=== PATIENT | male | born 1955 | race Two or more races ===

== ENCOUNTER → 2024-02-04 | Outpatient (CLI) | payer OTHER, SELFPAY ==
[2024-02-04 09:17] LABS: Basophils # (Auto) 0.1 Thou/mm3 (0.0-0.2); Basophils % (Auto) 1 % (0-2.5); Eosinophils # (Auto) 0.3 Thou/mm3 (0.0-0.5); Eosinophils % (Auto) 5 % (0-10); Hematocrit 44.5 % (41.0-53.0); Hemoglobin 15.7 g/dL (13.5-16.0); Immature Granulocytes % (Auto) 0 % (0-0); Immature Granulocytes Auto 0.02 Thou/mm3 (0.00-0.00); Lymphocytes # (Auto) 1.4 Thou/mm3 (1.0-4.8); Lymphocytes % (Auto) 26 % (10-50); Mean Corpuscular HGB Conc 35.3 g/dl (31.0-37.0); Mean Corpuscular Hemoglobin 30.5 pg (25.0-35.0); Mean Corpuscular Volume 86 fL (80-100); Monocytes # (Auto) 0.7 Thou/mm3 (0.0-0.8); Monocytes % (Auto) 13 % (0-12); Neutrophils # (Auto) 3.1 Thou/mm3 (1.8-7.7); Neutrophils % (Auto) 56 % (37-80); Nucleated Red Blood Cell % 0 /100 WBC (0); Platelet Count 181 Thou/mm3 (140-440); RDW Standard Deviation 40.8 fL (35.1-43.9); Red Blood Count 5.15 Miln/mm3 (4.50-5.90); White Blood Count 5.5 Thou/mm3 (3.8-10.6)
[2024-02-04 09:26] LABS: Glucose Estimated Average 108 mg/dL (80-131); Hemoglobin A1C 5.4 % Hgb (4.8-6.0)
[2024-02-04 09:36] LABS: B-Type Natriuretic Peptide 23 pg/mL (0-100); PSA Medicare Annual Scrn 0.75 ng/mL (0-4.00)
[2024-02-04 09:39] LABS: Alanine Aminotransferase 47 U/L (10-49); Albumin, Serum 4.5 gm/dL (3.4-4.8); Alkaline Phosphatase 33 U/L (46-116); Anion Gap 5 (7-16); Aspartate Amino Transferase 30 U/L (0-34); BUN/Creatinine Ratio 23 Ratio (12-20); Bilirubin,Total 0.8 mg/dL (0.3-1.2); Blood Urea Nitrogen 36 mg/dL (9-23); Calcium 9.8 mg/dL (8.3-10.6); Calcium (Corrected) 9.8 mg/dL (8.5-10.1); Carbon Dioxide 27.7 mMol/L (20.0-31.0); Cardiac Risk Estimate 5.5 RATIO (4.0-6.7); Chloride 104 mMol/L (98-107); Cholesterol 232 mg/dL (132-200); Creatinine (Component) 1.6 mg/dL (0.6-1.3); Globulin 2.3 gm/dL (2.3-3.5); Glucose 105 mg/dL (74-106); HDL Cholesterol 42 mg/dL (40-60); LDL Cholesterol,Calculated 165 mg/dL (0-130); Osmolality,Calculated 282 (275-295); Potassium 4.2 mMol/L (3.4-5.1); Sodium 137 mMol/L (136-145); Total Protein 6.8 gm/dL (5.7-8.2); Triglycerides 127 mg/dL (30-150); eGFR 46 See Note
[2024-02-09 06:16] LABS: Testosterone, Free,Dialysis 40.9 pg/mL (30.0-135.0); Testosterone, Total, Dialysis 330 ng/dL (250-1100)
== END | disposition home or self-care (01) ==
LOC: COPL 08:46
PROVIDERS: PCP Internal Medicine; Referring Provider Internal Medicine; Visit Provider Internal Medicine
DX: N52.8 Other male erectile dysfunction (principal); I10 Essential (primary) hypertension; M45.0 Ankylosing spondylitis of multiple sites in spine; R35.1 Nocturia; R60.9 Edema, unspecified
CPT/HCPCS: 36415; 80053; 80061; 83036; 83880; 84153; 84402; 84403; 85025; G0103

== ENCOUNTER → 2024-05-05 | Outpatient (CLI) | payer OTHER, SELFPAY ==
[2024-05-05 10:43] LABS: Anion Gap 7 (7-16); BUN/Creatinine Ratio 21 Ratio (12-20); Blood Urea Nitrogen 29 mg/dL (9-23); Calcium 9.7 mg/dL (8.3-10.6); Carbon Dioxide 29.7 mMol/L (20.0-31.0); Cardiac Risk Estimate 4.4 RATIO (4.0-6.7); Chloride 103 mMol/L (98-107); Cholesterol 183 mg/dL (132-200); Creatinine (Component) 1.4 mg/dL (0.6-1.3); Glucose 101 mg/dL (74-106); HDL Cholesterol 42 mg/dL (40-60); LDL Cholesterol,Calculated 114 mg/dL (0-130); Osmolality,Calculated 285 (275-295); Potassium 4.6 mMol/L (3.4-5.1); Sodium 140 mMol/L (136-145); Triglycerides 135 mg/dL (30-150); eGFR 54 See Note
== END | disposition home or self-care (01) ==
PROVIDERS: PCP Family Medicine; Referring Provider Internal Medicine; Visit Provider Internal Medicine
DX: I10 Essential (primary) hypertension (principal); E78.5 Hyperlipidemia, unspecified
CPT/HCPCS: 36415; 80048; 80061

== ENCOUNTER → 2025-02-02 | Outpatient (CLI) | payer OTHER, SELFPAY ==
--- NOTE | 2025-02-02 08:42 | XR_ITS ---
Examination: Lumbar spine, 5 views Technique: Lumbar spine AP, lateral, coned lateral lower lumbar spine, bilateral obliques 5 views Exam date and time: February 02, 2025, 0909 hours INDICATION: Low back pain 5 years. FINDINGS: Advanced diffuse facet arthropathy Heavy abdominal aortic calcification but no aneurysmal dilatation Grade 1 anterolisthesis L4 on L5 Moderate degenerative disc disease L4-L5, advanced degenerative disc disease L5-S1 IMPRESSION: Advanced degenerative disc disease L5-S1 with significant spinal stenosis
--- NOTE | 2025-02-02 08:42 | XR_ITS ---
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
--- NOTE | 2025-02-02 08:42 | XR_ITS ---
EXAMINATION: Cervical spine, 5 views Technique: Cervical spine AP, AP odontoid, lateral, bilateral obliques, 5 views Exam date and time: February 02, 2025, 0909 hours INDICATIONS: Neck pain 10 years. FINDINGS: Straightening normal cervical lordosis Moderate disc narrowing C3-C7 with moderate bilateral neuroforaminal stenosis on the oblique views No fracture Intact odontoid IMPRESSION: Moderate diffuse degenerative disc disease with moderate bilateral neural foraminal stenosis C3-C7
[2025-02-02 10:41] LABS: Basophils # (Auto) 0.0 Thou/mm3 (0.0-0.2); Basophils % (Auto) 1 % (0-2.5); Eosinophils # (Auto) 0.2 Thou/mm3 (0.0-0.5); Eosinophils % (Auto) 5 % (0-10); Hematocrit 46.2 % (41.0-53.0); Hemoglobin 16.5 g/dL (13.5-16.0); Immature Granulocytes Auto 0.04 Thou/mm3 (0.00-0.00); Lymphocytes # (Auto) 1.3 Thou/mm3 (1.0-4.8); Lymphocytes % (Auto) 23 % (10-50); Mean Corpuscular HGB Conc 35.7 g/dl (31.0-37.0); Mean Corpuscular Hemoglobin 30.6 pg (25.0-35.0); Mean Corpuscular Volume 86 fL (80-100); Monocytes # (Auto) 0.5 Thou/mm3 (0.0-0.8); Monocytes % (Auto) 10 % (0-12); Neutrophils # (Auto) 3.3 Thou/mm3 (1.8-7.7); Neutrophils % (Auto) 61 % (37-80); Nucleated Red Blood Cell # 0.00 Thou/mm3 (0.00-0.00); Nucleated Red Blood Cell % 0 /100 WBC (0); Platelet Count 193 Thou/mm3 (140-440); RDW Standard Deviation 41.9 fL (35.1-43.9); Red Blood Count 5.39 Miln/mm3 (4.50-5.90); White Blood Count 5.4 Thou/mm3 (3.8-10.6)
[2025-02-02 10:54] LABS: Glucose Estimated Average 114 mg/dL (80-131); Hemoglobin A1C 5.6 % Hgb (4.8-6.0)
[2025-02-02 11:01] LABS: Alanine Aminotransferase 36 U/L (10-49); Albumin, Serum 4.7 gm/dL (3.4-4.8); Albumin/Globulin Ratio 2.4 (1.2-2.2); Alkaline Phosphatase 33 U/L (46-116); Anion Gap 9 (7-16); Aspartate Amino Transferase 34 U/L (0-34); BUN/Creatinine Ratio 12 Ratio (12-20); Bilirubin,Total 0.7 mg/dL (0.3-1.2); Blood Urea Nitrogen 19 mg/dL (9-23); Calcium 9.9 mg/dL (8.3-10.6); Calcium (Corrected) 9.9 mg/dL (8.5-10.1); Carbon Dioxide 26.5 mMol/L (20.0-31.0); Cardiac Risk Estimate 4.5 RATIO (4.0-6.7); Chloride 103 mMol/L (98-107); Cholesterol 209 mg/dL (132-200); Creatinine (Component) 1.6 mg/dL (0.6-1.3); Globulin 2.0 gm/dL (2.3-3.5); Glucose 109 mg/dL (74-106); HDL Cholesterol 46 mg/dL (40-60); LDL Cholesterol,Calculated 133 mg/dL (0-130); Osmolality,Calculated 278 (275-295); Potassium 4.4 mMol/L (3.4-5.1); Sodium 138 mMol/L (136-145); Thyroid Stimulating Hormone 3.18 uIU/mL (0.55-4.78); Total Protein 6.7 gm/dL (5.7-8.2); Triglycerides 149 mg/dL (30-150); eGFR 46 See Note
== END | disposition home or self-care (01) ==
LOC: CDIM 08:33 → COPL 09:28
PROVIDERS: PCP Internal Medicine; Referring Provider Internal Medicine; Visit Provider Radiology Diagnostic Radiology
DX: M51.379 Other intervertebral disc degeneration, lumbosacral region without mention of lumbar back pain or lower extremity pain (principal); M48.07 Spinal stenosis, lumbosacral region; M50.323 Other cervical disc degeneration at C6-C7 level; M48.02 Spinal stenosis, cervical region; M17.0 Bilateral primary osteoarthritis of knee; I10 Essential (primary) hypertension; M45.0 Ankylosing spondylitis of multiple sites in spine; E78.5 Hyperlipidemia, unspecified
CPT/HCPCS: 36415; 72050; 72110; 73564; 80053; 80061; 83036; 84443; 85025

== ENCOUNTER → 2025-03-12 | Outpatient (CLI) | payer OTHER, SELFPAY ==
--- NOTE | 2025-03-12 08:00 | XR_ITS ---
Examination: CT chest, without intravenous contrast. Sagittal and coronal 2-D reconstructions. Exam date and time: 03/12/2025 at 8:46 a.m. CLINICAL HISTORY: Shortness of breath for 4 years Comparison study 09/13/2020 CTDI:vol (mGy) 14.9 DLP: (mGycm) 582 Technique: Multiple 3.0 mm axial sections of the chest to been obtained. Bone and lung density settings are obtained. Sagittal and coronal 2-D reconstructions have been obtained. Low dose protocols were performed. One or more of the following dose reduction techniques were used; automated exposure control, adjustment of the mA and/or KV according to patient size, use of iterative reconstruction technique. Findings: Both right and left lungs are well expanded and clear, there is no pleural fluid. There is no evidence of any localized focal lesions there is no interstitial fibrosis and there is no evidence of any abnormal infiltrates. Heart size appears normal, no abnormalities are seen in the subcarinal region or hilar regions or mediastinum. There is moderate dilatation of the ascending aorta measuring 3.8 cm in diameter, this is unchanged from the prior CT on 09/13/2020. There is heavy atherosclerotic calcification in the left main coronary artery, mild calcification in the left circumflex and right coronary arteries. Patient is status post cholecystectomy. No significant lesions are seen in the bones anywhere. IMPRESSION: 1. No acute cardiopulmonary abnormalities are identified. Lungs are clear 2. Heart size is normal. However there is abnormal dilatation of the ascending thoracic aorta measuring 3.8 cm and this is unchanged 3. There is fairly prominent coronary artery calcification, most prominent in the LAD, this calcification has progressed slightly since the previous CT 4. Below the diaphragm there is evidence of previous cholecystectomy
== END | disposition home or self-care (01) ==
LOC: SCAT 07:58
PROVIDERS: PCP Internal Medicine; Referring Provider Internal Medicine; Visit Provider Internal Medicine
DX: I25.10 Atherosclerotic heart disease of native coronary artery without angina pectoris (principal); Z90.49 Acquired absence of other specified parts of digestive tract
CPT/HCPCS: 71250